=== PATIENT | male | born 1950 | race Caucasian/White ===

== ENCOUNTER 2022-08-06 09:40 | Emergency (ER) | payer MEDICARE ==
[~2022-08-06] VITALS: Ht 170.2 cm; Wt 54.5 kg
[2022-08-06 09:48] VITALS: BP 164/81
[2022-08-06 10:00] VITALS: BP 151/82
[2022-08-06 10:30] VITALS: BP 154/80
[2022-08-06 11:01] VITALS: BP 145/75
== END 2022-08-06 11:06 | disposition home or self-care (01) ==
LOC: ED 09:40
DX: S40.011A Contusion of right shoulder, initial encounter (principal); W06.XXXA Fall from bed, initial encounter; Y92.003 Bedroom of unspecified non-institutional (private) residence as the place of occurrence of the external cause

== ENCOUNTER 2023-02-27 12:03 | Inpatient (IN) | payer MEDICARE ==
[2023-02-27] VITALS (24 sets, daily range): BP systolic 103–144; BP diastolic 62–81
[~2023-02-27] VITALS: Ht 170.2 cm; Wt 50.0 kg
[2023-02-27 12:45] LABS: HEMATOCRIT 41.8 % (39.0-50.0); HEMOGLOBIN 14.1 g/dl (14.0-18.0); IMMATURE GRANULOCYTES 3.8 % (0.0-5.0); MEAN CELL VOLUME 93.3 fL CALC (80.0-100.0); MEAN CORPUSCULAR HGB 31.5 pG CALC (26.0-32.0); MEAN CORPUSCULAR HGB CONC 33.7 g/dL CAL (32.0-36.0); PLATELET COUNT 514 thou/uL (130-400); RED BLOOD COUNT 4.48 mill/uL (4.70-6.10); RED CELL DISTRI WIDTH 13.6 % (11.5-15.5)
[2023-02-27 12:48] LABS: MANUAL DIFFERENTIAL YES
[2023-02-27 12:58] LABS: ALBUMIN 3.1 g/dL (3.2-5.0); ALKALINE PHOSPHATASE 166 u/l (38-126); ANION GAP 16 (6-22 (CALC)); BILIRUBIN, TOTAL 0.9 mg/dL (0.2-1.3); BUN 63 mg/dL (8-23); BUN/CREATININE RATIO 40 (12-20 (CALC)); CARBON DIOXIDE 23 mmol/l (22-30); CHLORIDE 95 mmol/l (95-108); CREATININE 1.6 mg/dL (0.7-1.3); GFR FOR AFR.AMER. 51 ML/MIN (>=60 (CALC)); GFR OTHER RACES 42 ML/MIN (>=60 (CALC)); POTASSIUM 4.1 mmol/l (3.5-5.1); SGOT/AST 50 u/l (19-48); SODIUM 130 mmol/l (137-146); TOTAL PROTEIN 7.1 g/dL (6.3-8.2)
[2023-02-27 13:08] LABS: BAND 0 % (0-8); PLATELET ESTIMATE SLIGHT INCREASE
[2023-02-27] MEDS ORDERED: TRELEGY ELLIPTA1 AER (16:00)
[2023-02-27 16:01] LABS: URINE BILIRUBIN - DIPSTICK NEGATIVE (NEGATIVE); URINE BLOOD DIPSTICK TRACE-INTACT (NEGATIVE); URINE COLOR YELLOW; URINE GLUCOSE - DIPSTICK NEGATIVE (NEGATIVE); URINE KETONE NEGATIVE (NEGATIVE); URINE LEUK ESTERASE NEGATIVE (NEGATIVE); URINE PH 5.5 (4.5-8.0); URINE PROTEIN - DIPSTICK TRACE mg/dL (NEG-TRACE); URINE UROBILINOGEN - DIPSTICK 0.2 E.U./dL (0.2)
[2023-02-27 16:03] LABS: URINE NITRITE - DIPSTICK NEGATIVE (Negative)
[2023-02-28] VITALS (26 sets, daily range): BP systolic 119–157; BP diastolic 62–86
[2023-02-28 08:08] LABS: ALKALINE PHOSPHATASE 172 u/l (38-126); CREATININE 0.9 mg/dL (0.7-1.3); GFR FOR AFR.AMER. > 60 ML/MIN (>=60 (CALC)); GFR OTHER RACES > 60 ML/MIN (>=60 (CALC)); MAGNESIUM 2.3 mg/dL (1.6-2.3); POTASSIUM 4.3 mmol/l (3.5-5.1); SGOT/AST 58 u/l (19-48)
[2023-02-28 08:24] LABS: HEMATOCRIT 39.7 % (39.0-50.0); HEMOGLOBIN 13.3 g/dl (14.0-18.0); IMMATURE GRANULOCYTES 5.5 % (0.0-5.0); MANUAL DIFFERENTIAL YES; MEAN CELL VOLUME 93.6 fL CALC (80.0-100.0); MEAN CORPUSCULAR HGB 31.4 pG CALC (26.0-32.0); MEAN CORPUSCULAR HGB CONC 33.5 g/dL CAL (32.0-36.0); PLATELET COUNT 377 thou/uL (130-400); RED BLOOD COUNT 4.24 mill/uL (4.70-6.10)
[2023-02-28 08:28] LABS: ALBUMIN 2.2 g/dL (3.2-5.0); ANION GAP 16 (6-22 (CALC)); BUN 36 mg/dL (8-23); BUN/CREATININE RATIO 40 (12-20 (CALC)); C-REACTIVE PROTEIN 26.7 mg/dL (0-0.9); CARBON DIOXIDE 17 mmol/l (22-30); CHLORIDE 109 mmol/l (95-108); SODIUM 138 mmol/l (137-146)
[2023-02-28 09:54] LABS: BAND 27 % (0-8)
[2023-03-01] VITALS (24 sets, daily range): BP systolic 145–194; BP diastolic 71–97
[2023-03-01 04:13] LABS: HEMATOCRIT 39.7 % (39.0-50.0); HEMOGLOBIN 13.1 g/dl (14.0-18.0); MEAN CELL VOLUME 95.7 fL CALC (80.0-100.0); MEAN CORPUSCULAR HGB 31.6 pG CALC (26.0-32.0); RED BLOOD COUNT 4.15 mill/uL (4.70-6.10); RED CELL DISTRI WIDTH 14.4 % (11.5-15.5)
[2023-03-01 04:27] LABS: ALBUMIN 2.5 g/dL (3.2-5.0); ALKALINE PHOSPHATASE 249 u/l (38-126); BILIRUBIN, TOTAL 0.7 mg/dL (0.2-1.3); BUN 27 mg/dL (8-23); BUN/CREATININE RATIO 39 (12-20 (CALC)); CHLORIDE 111 mmol/l (95-108); CREATININE 0.7 mg/dL (0.7-1.3); GFR FOR AFR.AMER. > 60 ML/MIN (>=60 (CALC)); GFR OTHER RACES > 60 ML/MIN (>=60 (CALC)); MAGNESIUM 2.3 mg/dL (1.6-2.3); POTASSIUM 3.8 mmol/l (3.5-5.1); SGOT/AST 73 u/l (19-48); SODIUM 139 mmol/l (137-146)
[2023-03-01 04:28] LABS: ANION GAP 11 (6-22 (CALC)); CARBON DIOXIDE 21 mmol/l (22-30)
[2023-03-02] VITALS (30 sets, daily range): BP systolic 146–191; BP diastolic 70–151
[2023-03-02 05:18] LABS: HEMATOCRIT 36.5 % (39.0-50.0); HEMOGLOBIN 12.4 g/dl (14.0-18.0); MEAN CELL VOLUME 91.7 fL CALC (80.0-100.0); MEAN CORPUSCULAR HGB 31.2 pG CALC (26.0-32.0); RED BLOOD COUNT 3.98 mill/uL (4.70-6.10); RED CELL DISTRI WIDTH 14.2 % (11.5-15.5)
[2023-03-02 05:31] LABS: ALBUMIN 2.6 g/dL (3.2-5.0); ALKALINE PHOSPHATASE 225 u/l (38-126); ANION GAP 10 (6-22 (CALC)); BILIRUBIN, TOTAL 0.7 mg/dL (0.2-1.3); BUN 20 mg/dL (8-23); BUN/CREATININE RATIO 33 (12-20 (CALC)); CARBON DIOXIDE 22 mmol/l (22-30); CHLORIDE 109 mmol/l (95-108); CREATININE 0.6 mg/dL (0.7-1.3); GFR FOR AFR.AMER. > 60 ML/MIN (>=60 (CALC)); GFR OTHER RACES > 60 ML/MIN (>=60 (CALC)); MAGNESIUM 1.9 mg/dL (1.6-2.3); POTASSIUM 3.6 mmol/l (3.5-5.1); SGOT/AST 51 u/l (19-48); SODIUM 138 mmol/l (137-146); TOTAL PROTEIN 6.1 g/dL (6.3-8.2)
[2023-03-03] VITALS (44 sets, daily range): BP systolic 115–156; BP diastolic 57–92
[2023-03-03 06:08] LABS: HEMATOCRIT 37.9 % (39.0-50.0); HEMOGLOBIN 12.4 g/dl (14.0-18.0); MEAN CELL VOLUME 94.8 fL CALC (80.0-100.0); MEAN CORPUSCULAR HGB CONC 32.7 g/dL CAL (32.0-36.0); RED CELL DISTRI WIDTH 14.4 % (11.5-15.5)
[2023-03-03 06:28] LABS: ALBUMIN 2.5 g/dL (3.2-5.0); ALKALINE PHOSPHATASE 184 u/l (38-126); ANION GAP 11 (6-22 (CALC)); BILIRUBIN, TOTAL 0.9 mg/dL (0.2-1.3); BUN 22 mg/dL (8-23); BUN/CREATININE RATIO 43 (12-20 (CALC)); C-REACTIVE PROTEIN 6.1 mg/dL (0-0.9); CARBON DIOXIDE 24 mmol/l (22-30); CHLORIDE 101 mmol/l (95-108); CREATININE 0.5 mg/dL (0.7-1.3); GFR FOR AFR.AMER. > 60 ML/MIN (>=60 (CALC)); GFR OTHER RACES > 60 ML/MIN (>=60 (CALC)); MAGNESIUM 1.7 mg/dL (1.6-2.3); POTASSIUM 3.5 mmol/l (3.5-5.1); SGOT/AST 46 u/l (19-48); SODIUM 133 mmol/l (137-146); TOTAL PROTEIN 5.6 g/dL (6.3-8.2)
[2023-03-04] VITALS (24 sets, daily range): BP systolic 88–153; BP diastolic 51–107
[2023-03-04 05:11] LABS: HEMATOCRIT 41.3 % (39.0-50.0); HEMOGLOBIN 13.7 g/dl (14.0-18.0); MEAN CELL VOLUME 93.4 fL CALC (80.0-100.0); MEAN CORPUSCULAR HGB CONC 33.2 g/dL CAL (32.0-36.0); RED BLOOD COUNT 4.42 mill/uL (4.70-6.10); RED CELL DISTRI WIDTH 14.1 % (11.5-15.5)
[2023-03-04 05:27] LABS: ALBUMIN 2.6 g/dL (3.2-5.0); ALKALINE PHOSPHATASE 175 u/l (38-126); BUN 23 mg/dL (8-23); BUN/CREATININE RATIO 38 (12-20 (CALC)); CHLORIDE 98 mmol/l (95-108); CREATININE 0.6 mg/dL (0.7-1.3); GFR FOR AFR.AMER. > 60 ML/MIN (>=60 (CALC)); GFR OTHER RACES > 60 ML/MIN (>=60 (CALC)); MAGNESIUM 1.9 mg/dL (1.6-2.3); POTASSIUM 3.1 mmol/l (3.5-5.1); SGOT/AST 46 u/l (19-48); SODIUM 133 mmol/l (137-146); TOTAL PROTEIN 5.9 g/dL (6.3-8.2)
[2023-03-04 05:28] LABS: ANION GAP 7 (6-22 (CALC)); CARBON DIOXIDE 31 mmol/l (22-30)
[2023-03-05] VITALS (11 sets, daily range): BP systolic 111–156; BP diastolic 51–79
[2023-03-05 05:06] LABS: HEMOGLOBIN 13.1 g/dl (14.0-18.0); LYMPH% 2.5 % (15-41); MEAN CELL VOLUME 92.8 fL CALC (80.0-100.0); MEAN CORPUSCULAR HGB 30.4 pG CALC (26.0-32.0); MEAN CORPUSCULAR HGB CONC 32.8 g/dL CAL (32.0-36.0); MONO% 3.2 % (2-13); NEUT# 24.87 thou/uL (1.82-7.42); NEUT% 92.3 % (42-76); RED BLOOD COUNT 4.31 mill/uL (4.70-6.10); RED CELL DISTRI WIDTH 14.2 % (11.5-15.5)
[2023-03-05 05:13] LABS: ANION GAP 10 (6-22 (CALC)); BUN 27 mg/dL (8-23); BUN/CREATININE RATIO 47 (12-20 (CALC)); CARBON DIOXIDE 27 mmol/l (22-30); CHLORIDE 102 mmol/l (95-108); CREATININE 0.6 mg/dL (0.7-1.3); GFR FOR AFR.AMER. > 60 ML/MIN (>=60 (CALC)); GFR OTHER RACES > 60 ML/MIN (>=60 (CALC)); MAGNESIUM 2.1 mg/dL (1.6-2.3); SODIUM 135 mmol/l (137-146)
[2023-03-05 05:16] LABS: POTASSIUM 3.8 mmol/l (3.5-5.1)
[2023-03-06] VITALS (8 sets, daily range): BP systolic 95–130; BP diastolic 43–64
[2023-03-06 05:02] LABS: HEMATOCRIT 37.4 % (39.0-50.0); HEMOGLOBIN 12.2 g/dl (14.0-18.0); IMMATURE GRANULOCYTES 0.9 % (0.0-5.0); LYMPH% 3.4 % (15-41); MEAN CORPUSCULAR HGB 30.7 pG CALC (26.0-32.0); MEAN CORPUSCULAR HGB CONC 32.6 g/dL CAL (32.0-36.0); MONO% 4.2 % (2-13); NEUT# 19.32 thou/uL (1.82-7.42); NEUT% 91.5 % (42-76); RED BLOOD COUNT 3.98 mill/uL (4.70-6.10); RED CELL DISTRI WIDTH 14.4 % (11.5-15.5)
[2023-03-06 05:13] LABS: ANION GAP 7 (6-22 (CALC)); BUN 32 mg/dL (8-23); BUN/CREATININE RATIO 58 (12-20 (CALC)); CARBON DIOXIDE 25 mmol/l (22-30); CHLORIDE 103 mmol/l (95-108); CREATININE 0.5 mg/dL (0.7-1.3); GFR FOR AFR.AMER. > 60 ML/MIN (>=60 (CALC)); GFR OTHER RACES > 60 ML/MIN (>=60 (CALC)); MAGNESIUM 2.1 mg/dL (1.6-2.3); POTASSIUM 3.6 mmol/l (3.5-5.1); SODIUM 132 mmol/l (137-146)
[2023-03-06] MEDS ORDERED: DECADRON4 MG PO (09:25)
[2023-03-06] MEDS ORDERED: OMNICEF300 M1 PO (09:28)
[2023-03-06] MEDS ORDERED: LEVOFLOXACIN500MG PO (09:48)
== END 2023-03-06 12:00 | disposition home or self-care (01) | DRG 871 ==
LOC: ED 12:03 → ED-I 17:00 → ED 17:28 → ICU 17:29 → MS2 17:29 → ICU 18:45 → MS2 03-04 17:09 → ICU 03-05 18:15
PROVIDERS: Family Medicine; ADMIT Internal Medicine; ATTEND Internal Medicine
PROC: 5A0935A Assistance with Respiratory Ventilation, Less than 24 Consecutive Hours, High Flow/Velocity Cannula (ICD-10-PCS; principal; 2023-02-28)
PROC: XW033E5 Introduction of Remdesivir Anti-infective into Peripheral Vein, Percutaneous Approach, New Technology Group 5 (ICD-10-PCS; 2023-03-01)
DX: A41.89 Other specified sepsis (principal); G93.41 Metabolic encephalopathy; U07.1 COVID-19; J12.82 Pneumonia due to coronavirus disease 2019; J96.01 Acute respiratory failure with hypoxia; J44.0 Chronic obstructive pulmonary disease with (acute) lower respiratory infection; N17.9 Acute kidney failure, unspecified; B37.0 Candidal stomatitis; E87.20 Acidosis, unspecified; R65.20 Severe sepsis without septic shock; F03.90 Unspecified dementia, unspecified severity, without behavioral disturbance, psychotic disturbance, mood disturbance, and anxiety; G47.00 Insomnia, unspecified; B96.5 Pseudomonas (aeruginosa) (mallei) (pseudomallei) as the cause of diseases classified elsewhere; Z87.891 Personal history of nicotine dependence; Z99.81 Dependence on supplemental oxygen
CPT/HCPCS: J0692; Q3014; Q9967

== ENCOUNTER 2023-04-10 19:10 | Observation (INO) | payer MEDICARE ==
[2023-04-10] VITALS (16 sets, daily range): BP systolic 103–142; BP diastolic 57–82
[~2023-04-10] VITALS: Ht 170.2 cm; Wt 48.1 kg
[~2023-04-10 19:10] MED LIST: DECADRON4 MG PO; LEVOFLOXACIN500MG PO; OMNICEF300 M1 PO; TRELEGY ELLIPTA1 AER; VENTOLIN HFA108 MCG INHW/SPAC
[2023-04-10 19:50] LABS: EOS% 0.1 % (0-8); HEMATOCRIT 30.3 % (39.0-50.0); HEMOGLOBIN 9.6 g/dl (14.0-18.0); IMMATURE GRANULOCYTES 0.6 % (0.0-5.0); LYMPH% 13.3 % (15-41); MEAN CELL VOLUME 92.1 fL CALC (80.0-100.0); MEAN CORPUSCULAR HGB 29.2 pG CALC (26.0-32.0); MEAN CORPUSCULAR HGB CONC 31.7 g/dL CAL (32.0-36.0); MONO% 5.3 % (2-13); NEUT# 13.95 thou/uL (1.82-7.42); NEUT% 80.7 % (42-76); RED BLOOD COUNT 3.29 mill/uL (4.70-6.10); RED CELL DISTRI WIDTH 15.9 % (11.5-15.5)
[2023-04-10 20:04] LABS: PROTHROMBIN TIME 10.2 SECONDS (9.0-12.5)
[2023-04-10 20:12] LABS: D-DIMER 5.22 mg/L (0.19-0.60)
[2023-04-10 21:01] LABS: ALKALINE PHOSPHATASE 173 u/l (38-126); ANION GAP 9 (6-22 (CALC)); BUN 13 mg/dL (8-23); BUN/CREATININE RATIO 20 (12-20 (CALC)); CARBON DIOXIDE 25 mmol/l (22-30); CHLORIDE 101 mmol/l (95-108); CREATININE 0.6 mg/dL (0.7-1.3); GFR FOR AFR.AMER. > 60 ML/MIN (>=60 (CALC)); GFR OTHER RACES > 60 ML/MIN (>=60 (CALC)); POTASSIUM 3.7 mmol/l (3.5-5.1); SODIUM 132 mmol/l (137-146); TOTAL PROTEIN 6.6 g/dL (6.3-8.2)
[2023-04-10 21:03] LABS: ALBUMIN 2.8 g/dL (3.2-5.0); BILIRUBIN, TOTAL 0.5 mg/dL (0.2-1.3); SGOT/AST 56 u/l (19-48)
[2023-04-11] VITALS (67 sets, daily range): BP systolic 73–129; BP diastolic 51–77
[2023-04-11] MEDS ORDERED: BENZONATATE150 MG (04:08)
[2023-04-11] MEDS ORDERED: TRELEGY ELLIPTA1 AER (04:10)
[2023-04-11] MEDS ORDERED: VENTOLIN HFA IN (04:12)
[2023-04-11 13:39] LABS: CHOLESTEROL HDL RATIO 3.9 (<4.4 (CALC))
[2023-04-11 18:22] LABS: URINE BILIRUBIN - DIPSTICK NEGATIVE (NEGATIVE); URINE BLOOD DIPSTICK NEGATIVE (NEGATIVE); URINE COLOR YELLOW; URINE GLUCOSE - DIPSTICK NEGATIVE (NEGATIVE); URINE KETONE NEGATIVE (NEGATIVE); URINE LEUK ESTERASE NEGATIVE (NEGATIVE); URINE PROTEIN - DIPSTICK 30 mg/dL (NEG-TRACE); URINE SPECIFIC GRAVITY 1.025; URINE UROBILINOGEN - DIPSTICK 0.2 E.U./dL (0.2)
[2023-04-11 18:25] LABS: URINE NITRITE - DIPSTICK NEGATIVE (Negative)
[2023-04-11 18:32] LABS: URINE RBC 0-2 RBC/hpf (0-5); URINE WBC 0-2 WBC/hpf (0-5)
[2023-04-12] VITALS (24 sets, daily range): BP systolic 109–142; BP diastolic 52–82
[2023-04-12 05:42] LABS: HEMATOCRIT 25.1 % (39.0-50.0); HEMOGLOBIN 7.9 g/dl (14.0-18.0); MEAN CELL VOLUME 92.3 fL CALC (80.0-100.0); MEAN CORPUSCULAR HGB CONC 31.5 g/dL CAL (32.0-36.0); RED BLOOD COUNT 2.72 mill/uL (4.70-6.10); RED CELL DISTRI WIDTH 15.9 % (11.5-15.5)
[2023-04-12 05:59] LABS: ALBUMIN 2.3 g/dL (3.2-5.0); ALKALINE PHOSPHATASE 133 u/l (38-126); ANION GAP 7 (6-22 (CALC)); BUN 18 mg/dL (8-23); BUN/CREATININE RATIO 30 (12-20 (CALC)); CARBON DIOXIDE 28 mmol/l (22-30); CHLORIDE 102 mmol/l (95-108); CREATININE 0.6 mg/dL (0.7-1.3); GFR FOR AFR.AMER. > 60 ML/MIN (>=60 (CALC)); GFR OTHER RACES > 60 ML/MIN (>=60 (CALC)); MAGNESIUM 1.9 mg/dL (1.6-2.3); POTASSIUM 3.5 mmol/l (3.5-5.1); SGOT/AST 26 u/l (19-48); SODIUM 133 mmol/l (137-146)
[2023-04-12 06:06] LABS: BILIRUBIN, TOTAL 0.2 mg/dL (0.2-1.3); TOTAL PROTEIN 5.2 g/dL (6.3-8.2)
[2023-04-13] VITALS (11 sets, daily range): BP systolic 116–158; BP diastolic 51–77
[2023-04-13 06:26] LABS: MEAN CELL VOLUME 92.7 fL CALC (80.0-100.0); MEAN CORPUSCULAR HGB 28.8 pG CALC (26.0-32.0); RED BLOOD COUNT 3.13 mill/uL (4.70-6.10); RED CELL DISTRI WIDTH 16.5 % (11.5-15.5)
[2023-04-13 06:41] LABS: ALBUMIN 2.7 g/dL (3.2-5.0); ALKALINE PHOSPHATASE 133 u/l (38-126); BUN 16 mg/dL (8-23); BUN/CREATININE RATIO 29 (12-20 (CALC)); CARBON DIOXIDE 28 mmol/l (22-30); CHLORIDE 102 mmol/l (95-108); CREATININE 0.6 mg/dL (0.7-1.3); GFR FOR AFR.AMER. > 60 ML/MIN (>=60 (CALC)); GFR OTHER RACES > 60 ML/MIN (>=60 (CALC)); SGOT/AST 38 u/l (19-48); SODIUM 135 mmol/l (137-146)
[2023-04-13 06:43] LABS: ANION GAP 9 (6-22 (CALC)); BILIRUBIN, TOTAL 0.5 mg/dL (0.2-1.3); POTASSIUM 4.4 mmol/l (3.5-5.1)
[2023-04-13] MEDS ORDERED: PANTOPRAZOLE SO40 M1 PO (15:52)
[2023-04-13] MEDS ORDERED: OMNICEF300 MG PO (15:52)
[2023-04-13] MEDS ORDERED: PREDNISONE10 MG PO (15:56)
== END 2023-04-13 17:15 ==
LOC: ED 19:10 → ICU 23:21 → ED-I 23:21 → ICU 04-11 02:22
PROVIDERS: Emergency Medicine; ADMIT Internal Medicine; ATTEND Internal Medicine
PROC: 5A09357 Assistance with Respiratory Ventilation, Less than 24 Consecutive Hours, Continuous Positive Airway Pressure (ICD-10-PCS; principal; 2023-04-10)
DX: J43.9 Emphysema, unspecified (principal); J96.01 Acute respiratory failure with hypoxia; D62 Acute posthemorrhagic anemia; R19.5 Other fecal abnormalities; I10 Essential (primary) hypertension; R91.8 Other nonspecific abnormal finding of lung field; Z87.891 Personal history of nicotine dependence; Z86.16 Personal history of COVID-19
CPT/HCPCS: J1650; J2060; Q9967

== ENCOUNTER 2024-09-27 13:52 | Observation (INO) | payer MEDICARE ==
[2024-09-27] VITALS (16 sets, daily range): BP systolic 72–155; BP diastolic 45–108
[~2024-09-27] VITALS: Ht 170.2 cm; Wt 51.8 kg
[~2024-09-27 13:52] MED LIST changes: +BENZONATATE150 MG; +OMNICEF300 MG PO; +PANTOPRAZOLE SO40 M1 PO; +PREDNISONE10 MG PO; +VENTOLIN HFA IN
--- NOTE | 2024-09-27 13:52 | NUR ---
PT TO ER ROOM 7 VIA EMS.
[2024-09-27] MEDS ORDERED: SODIUM CHLORIDE 0.9% 1,000 ML IV ONE ×2 (14:15)
[2024-09-27 14:19] LABS: BASO% 0.2 % (0-3); IMMATURE GRANULOCYTES 0.4 % (0.0-5.0); LYMPH% 12.4 % (15-41); MEAN CORPUSCULAR HGB CONC 31.6 g/dL CAL (32.0-36.0); MONO% 11.8 % (2-13); NEUT# 9.65 thou/uL (1.82-7.42); NEUT% 75.2 % (42-76); RED BLOOD COUNT 4.47 mill/uL (4.70-6.10); RED CELL DISTRI WIDTH 14.1 % (11.5-15.5)
[2024-09-27 14:27] LABS: HEMATOCRIT 39.5 % (39.0-50.0); HEMOGLOBIN 12.5 g/dl (14.0-18.0)
[2024-09-27 14:28] LABS: MEAN CELL VOLUME 88.4 fL CALC (80.0-100.0)
[2024-09-27 14:32] LABS: CREATININE 1.1 mg/dL (0.7-1.3); POTASSIUM 4.2 mmol/l (3.5-5.1)
[2024-09-27 14:33] LABS: ALBUMIN 3.9 g/dL (3.2-5.0); BILIRUBIN, TOTAL 0.9 mg/dL (0.2-1.3)
--- NOTE | 2024-09-27 15:23 | NUR ---
Patient unable to void for urine specimen. Provider made aware.
[2024-09-27] MEDS ORDERED: AZITHROMYCIN 500 MG in SODIUM CHLORIDE 0.9% 500 ML IV ONE (16:50)
--- NOTE | 2024-09-27 17:37 | NUR ---
Patient confused stating that he is at home in his bedroom.
[2024-09-27] MEDS ORDERED: MAGNESIUM HYDROXIDE 30 ML UDC PO PRN (17:45)
[2024-09-27] MEDS ORDERED: SODIUM CHLORIDE 0.9% 1,000 ML IV PRN (17:45)
[2024-09-27] MEDS ORDERED: ACETAMINOPHEN 325 MG/TAB PO PRN (17:45)
[2024-09-27 17:59] LABS: URINE BLOOD DIPSTICK Moderate (NEGATIVE); URINE GLUCOSE - DIPSTICK Negative (NEGATIVE); URINE KETONE 15 mg/dL (NEGATIVE); URINE LEUK ESTERASE Negative (NEGATIVE); URINE NITRITE - DIPSTICK Negative (Negative); URINE PH 5.5 (4.5-8.0); URINE PROTEIN - DIPSTICK >=300 mg/dL (NEG-TRACE); URINE SPECIFIC GRAVITY 1.025; URINE UROBILINOGEN - DIPSTICK 0.2 E.U./dL (0.2)
[2024-09-27 18:01] LABS: URINE COLOR Dark yellow
[2024-09-27 18:12] LABS: URINE RBC 0-2 RBC/hpf (0-5); URINE SQUAMOUS EPITHELIAL CELL FEW EPI/hpf (0-FEW); URINE WBC 0-2 WBC/hpf (0-5)
[2024-09-27 18:13] LABS: URINE MUCUS FEW hpf (NONE-FEW)
[2024-09-27 18:14] LABS: URINE COARSE GRANULAR CAST MODERATE lpf
[2024-09-27] MEDS ORDERED: ALBUTEROL SULFATE 8 GM INH IN SCH (19:00)
--- NOTE | 2024-09-27 19:11 | NUR ---
Report called to [facility], 2nd floor.
--- NOTE | 2024-09-27 19:12 | NUR ---
Patient's daughter, Bhakti Joe, called to update on patient's condition.
--- NOTE | 2024-09-27 19:40 | NUR ---
PT TRANSPORTED TO [facility] BY [employer]. AT THIS TIME.
[2024-09-27] MEDS ORDERED: ENOXAPARIN SODIUM 40 MG/0.4 ML SYR SC SCH (21:00)
--- NOTE | 2024-09-27 21:50 | NUR ---
PATIENT CAME IN FROM ER TO MS2 AT 1948. PATIENT OBSERVED TO BE A&O X1. BED SIDE ASSESSMENT COMPLETE. RESP EVEN AND UNLABORED, NO VISUAL SIGNS OF DISTRESS. BOWEL SOUNDS PRESENT. PERIPHERAL PULSES STRONG AND EQUAL. SITTER AT BED SIDE. BED AT LOWEST POSITION. CALL LIGHT WITH IN REACH.
[2024-09-28] VITALS (8 sets, daily range): BP systolic 110–137; BP diastolic 43–65
--- NOTE | 2024-09-28 00:11 | NUR ---
PATIENT IN ROOM RESTING ON LEFT SIDE. SITTER AT BEDSIDE. EQUAL UNLABORED RESP NO VISUAL SIGNS OF DISTRESS. SAFTY PRECAUTIONS IN PLACE. BED AT LOWEST POSITION. CALL LIGHT WITH IN REACH.
--- NOTE | 2024-09-28 04:18 | NUR ---
PATIENT OBSERVED TO BE RESTING IN BED WITH EYES CLOSED. EQUAL UNLABORED RESP NO VISUAL SIGNS OF DISTRESS. BED AT LOWEST POSITION. CALL LIGHT WITH IN REACH.
--- NOTE | 2024-09-28 06:51 | NUR ---
PATIENT LAYING IN BED WITH EYES CLOSED. SITTER AT BEDSIDE. NO SIGNS OR SYMPTOMS OF PAIN OR DISTRESS NOTED AT THIS TIME.
[2024-09-28] MEDS ORDERED: PANTOPRAZOLE SODIUM Sesquihydr 40 MG/TAB PO SCH (09:00)
[2024-09-28] MEDS ORDERED: GUAIFENESIN 200 MG/10 ML UDC PO PRN (10:40)
[2024-09-28] MEDS ORDERED: METOPROLOL SUCCINATE 25 MG/TAB-TOPROL XL PO SCH (11:30)
--- NOTE | 2024-09-28 11:53 | NUR ---
PATIENT LAYING IN BED. SITTER AT BEDSIDE. PATIENT DENIES ANY NEED AT THIS TIME.
[2024-09-28] MEDS ORDERED: AZITHROMYCIN 500 MG in SODIUM CHLORIDE 0.9% 500 ML IV SCH (15:00)
--- NOTE | 2024-09-28 15:51 | NUR ---
PATIENT LAYING IN BED. SITTER AT BEDSIDE. PATIENT DENIES ANY NEEDS AT THIS TIME.
--- NOTE | 2024-09-28 17:02 | NUR ---
SPOKE WITH PATIENT DAUGHTER CHRIS HONG ([phone]). DAUGHTER STATES TO CALLED HER FIRST WITH ANY QUESTIONS OR UPDATES.
--- NOTE | 2024-09-28 20:00 | NUR ---
PATIENT SITTING UP IN RECLINER AT THIS TIME-AWAKE AND ALERT TO SELF. PLEASANT. SITTER AT BEDSIDE FOR PATIENT SAFETY. TELE MONITOR IN PLACE AND READING SR-90'S AT THIS TIME. PATIENT WITH PERSISTANT NON-PRODUCTIVE COUGH. IVF PATIENT AND INFUSING ORDERED-NS 100CC/HR. CALL LIGHT IN REACH. WILL CONT TO MONITOR.
--- NOTE | 2024-09-28 21:00 | NUR ---
PT SITTING UP ON THE RECLINER WATCHING TV AT THIS TIME. ALERT AND ORIENTED TO HIMSELG. RESPS ARE EVEN AND UNLABORED. NO SIGNS OF DISTRESS NOTED. WHEEZES HEARD ON AUSCULTATION. COUGH NOTED-NONPRODUCTIVE. TELE ON PLACE SHOWING SR-95 AT THIS TIME. IVF NS INSUFING AT THIS TIME. DENIES ANY NEEDS AT HSI TIME. CALL LIGHT IN REACH AND SAFETY PRECAUTIONS ON PLACE.
--- NOTE | 2024-09-28 22:30 | NUR ---
PT PULLED OUT HIS IV AT THIS TIME. NEW IV STARTED ON LEFT FOREARM-20- WITH GOOD BLOOD RETURN. IVF NS INFUSING AT 100 MLS/HR INFUSING AT THIS TIME. CALL LIGHT IN REACH AND SAFETY PRCAUTIONS ON PLACE.
[2024-09-29] VITALS (8 sets, daily range): BP systolic 119–164; BP diastolic 57–77
--- NOTE | 2024-09-29 | NUR ---
PT RESTING ON BED WITH EYES CLOSED. RESPS ARE EVEN AND UNLABORED. NO DISTRESS NOTED. IVF NS INFUSING VIA LEFT FOREARM AT THIS TIME. TELE ON PLACE. SITTER SITTING ON THE SIDE. CALL LIGHT IN REACH AND SAFETY PRECAUTIONS ON PLACE
--- NOTE | 2024-09-29 04:00 | NUR ---
PT SITTING UP ON THE RECLINER AT THIS TIME WATCHING TV. BREATHING IS EVEN AND UNLABORED. TELE MONITOR REMAISN ON PLACE SHOWING [id number] AT THIS TIME. IVF NS INFUSING AT 100 CC. CALL LIGHT IN RECAH AND SAFETY PRECAUTIONS ON PLACE.
[2024-09-29 04:56] LABS: MEAN CELL VOLUME 89.7 fL CALC (80.0-100.0); MEAN CORPUSCULAR HGB 28.9 pG CALC (26.0-32.0); MEAN CORPUSCULAR HGB CONC 32.3 g/dL CAL (32.0-36.0); RED BLOOD COUNT 3.49 mill/uL (4.70-6.10); RED CELL DISTRI WIDTH 14.4 % (11.5-15.5)
[2024-09-29 05:00] LABS: HEMATOCRIT 31.3 % (39.0-50.0); HEMOGLOBIN 10.1 g/dl (14.0-18.0)
[2024-09-29 05:11] LABS: ALBUMIN 3.3 g/dL (3.2-5.0); BILIRUBIN, TOTAL 0.7 mg/dL (0.2-1.3); CREATININE 0.8 mg/dL (0.7-1.3); POTASSIUM 3.4 mmol/l (3.5-5.1); TOTAL PROTEIN 6.8 g/dL (6.3-8.2)
--- NOTE | 2024-09-29 07:02 | NUR ---
PATIENT SITTING UP IN CHAIR, WATCHING TV. SITTER AT DOOR. PATIENT A&OX1. NO SIGNS OR SYMPTOMS OF PAIN OR DISTRESS NOTED.
[2024-09-29] MEDS ORDERED: POTASSIUM CHLORIDE 20 MEQ/TAB PO SCH (09:00)
--- NOTE | 2024-09-29 11:45 | NUR ---
PATIENT LAYING IN BED. SITTER AT DOOR. NO SIGNS OR SYMPTOMS OF PAIN OR DISTRESS NOTED.
--- NOTE | 2024-09-29 15:51 | NUR ---
PATIENT SITTING UP IN CHAIR, WATCHING TV. SITTER AT DOOR. NO SIGNS OR SYMPTOMS OF PAIN OR DISTRESS NOTED.
--- NOTE | 2024-09-29 21:00 | NUR ---
PT SITTING UP ON THE RECLINER WATCHING TV AT THIS TIME. ALERT AND ORIENTED TO HIMSELF ONLY. SITTER ON THE SIDE FOR PT SAFETY. RESPS ARE EVEN AND UNLABORED. NO SIGNS OF DISTRESS. PT STILL REMAINS WITH COUGH BUT IT IS NONPRODUCTIVE. WHEEZES/DIMISHED LUNGS SOUNDS ON AUSCULTATION. IVF NS INFUSING VIA 22 G LEFT FOREARM INFUSING AT 50 MLS/HR. SKIN IS DRY, AND WARMTH. CALL LIGHT IN REACH AND SAFETY PRECAUTIONS ON PLACE
[2024-09-30] VITALS (8 sets, daily range): BP systolic 127–157; BP diastolic 50–75
--- NOTE | 2024-09-30 | NUR ---
PT RESTING ON BED. RESPS EVEN AND UNLABORED. NO DISTRESS NOTED, IVF NS INFUSING AT 50 MLS/HR. SITTER ON THE SIDE. CALL LIGHT IN RECAH AND SAFETY PRECAUTIONS ON PLACE
[2024-09-30 04:22] LABS: HEMATOCRIT 30.2 % (39.0-50.0); HEMOGLOBIN 9.8 g/dl (14.0-18.0); MEAN CELL VOLUME 89.1 fL CALC (80.0-100.0); MEAN CORPUSCULAR HGB 28.9 pG CALC (26.0-32.0); MEAN CORPUSCULAR HGB CONC 32.5 g/dL CAL (32.0-36.0); RED BLOOD COUNT 3.39 mill/uL (4.70-6.10); RED CELL DISTRI WIDTH 14.3 % (11.5-15.5)
--- NOTE | 2024-09-30 04:24 | NUR ---
PT RESTING ON BED IN HIS LEFT SIDE. RESPS ARE EVEN AND UNLABORED. PT REMAINS WITH COUGH AT THIS TIME. IVF NS INFUSING AT 50 CC. TELE MONITOR SHOWING SR-93. SITTER ON THE SIDE. BED IN LOWEST POSITION. CALL LIGHT IN REACH AND SAEFTY PRECAUTIONS ON PLACE
[2024-09-30 04:31] LABS: ALBUMIN 2.8 g/dL (3.2-5.0); BILIRUBIN, TOTAL 0.6 mg/dL (0.2-1.3); CREATININE 0.7 mg/dL (0.7-1.3); POTASSIUM 3.2 mmol/l (3.5-5.1); TOTAL PROTEIN 5.9 g/dL (6.3-8.2)
--- NOTE | 2024-09-30 07:28 | NUR ---
SHIFT CHANGE REPORT, PT SLEEPING SOUNDLY IN LEFT SIDED POSITION, BREATHING EVEN AND NON-LABORED,IVF INFUSING, TELE MONITOR IN PLACE, CALL NORTON IN REACH AND BED LOCKED IN LOWEST POSITION. SITTER IN ROOM.
[2024-09-30] MEDS ORDERED: POTASSIUM CHLORIDE 20 MEQ/TAB PO SCH (09:00)
[2024-09-30] MEDS ORDERED: OMNICEF300 MG PO (10:05)
--- NOTE | 2024-09-30 11:57 | NUR ---
ASSISTED TO BR THIS AM AND SAT UP FOR BREAKFAST BUT REFUSED TO EAT AND SAID HE WAS TIRED AND JUST WANTED TO LAY BACK IN BED, ASSISTED TO BED AND CALL LIGHT PLACED IN REACH. SLEEPING AT THIS TIME, NO SIGN DISCOMFORT.
--- NOTE | 2024-09-30 16:19 | NUR ---
RESTING IN BED, NO NEW DEVELOPMENTS, CONDITION STABLE
--- NOTE | 2024-09-30 18:59 | NUR ---
Discharge instructions given. Patient verbalizes understanding of same. Discharged in stable condition via Wheelchair to Home with family. All belongings sent with pt.
== END 2024-09-30 19:00 | disposition home or self-care (01) ==
LOC: ED 13:52 → ED-I 14:12 → ED 17:15 → MS2 17:16
PROVIDERS: Nurse Practitioner; Nurse Practitioner Family; ADMIT Internal Medicine; ATTEND Internal Medicine
DX: J18.9 Pneumonia, unspecified organism (principal); J44.0 Chronic obstructive pulmonary disease with (acute) lower respiratory infection; J43.9 Emphysema, unspecified; I10 Essential (primary) hypertension; F03.90 Unspecified dementia, unspecified severity, without behavioral disturbance, psychotic disturbance, mood disturbance, and anxiety; K52.9 Noninfective gastroenteritis and colitis, unspecified; R00.0 Tachycardia, unspecified; Z87.01 Personal history of pneumonia (recurrent); Z87.891 Personal history of nicotine dependence; Z20.822 Contact with and (suspected) exposure to COVID-19
CPT/HCPCS: J0456; J0696; J1650

== ENCOUNTER 2024-10-03 05:55 | Inpatient (IN) | payer MEDICARE ==
[~2024-10-03] VITALS: Ht 274.3 cm; Wt 50.4 kg
[2024-10-03] VITALS (21 sets, daily range): BP systolic 133–162; BP diastolic 59–114
--- NOTE | 2024-10-03 05:55 | NUR ---
PT ARRIVED VIA EMS TO ROOM 10 FOR TRIAGE AT BEDSIDE.
[2024-10-03] MEDS ORDERED: Levofloxacin 750 mg Premix 150 ML IV STA (06:05)
[2024-10-03] MEDS ORDERED: SODIUM CHLORIDE 0.9% 1,000 ML BAG IV ONE (06:05)
--- NOTE | 2024-10-03 06:20 | NUR ---
PT MEDICATED PER ORDERS, AWAITING LAB FOR BLOOD CULTURES AT THIS TIME PRIOR TO PT ABX, VSS, PT A&OX4 AT THIS TIME AND UPON ARRIVAL. PT HAS RN APPEALS COUGH. AWAITING ALL FURTHER RESULTS/ORDERS.
[2024-10-03 06:26] LABS: BASO% 0.1 % (0-3); EOS% 0.3 % (0-8); HEMATOCRIT 32.5 % (39.0-50.0); HEMOGLOBIN 10.4 g/dl (14.0-18.0); IMMATURE GRANULOCYTES 1.8 % (0.0-5.0); LYMPH% 15.4 % (15-41); MEAN CELL VOLUME 87.6 fL CALC (80.0-100.0); MONO% 11.9 % (2-13); NEUT# 7.72 thou/uL (1.82-7.42); NEUT% 70.5 % (42-76); RED BLOOD COUNT 3.71 mill/uL (4.70-6.10); RED CELL DISTRI WIDTH 14.4 % (11.5-15.5)
[2024-10-03 06:39] LABS: ALBUMIN 3.1 g/dL (3.2-5.0); BILIRUBIN, TOTAL 0.5 mg/dL (0.2-1.3); CREATININE 0.7 mg/dL (0.7-1.3); POTASSIUM 2.8 mmol/l (3.5-5.1); TOTAL PROTEIN 6.9 g/dL (6.3-8.2)
--- NOTE | 2024-10-03 07:00 | NUR ---
ASSUMED CARE OF THE PATIENT FROM [facility]. [facility] CALLED. PRO-ADOLFO [phone]. DR. HAMPTON MADE AWARE. NIGHT NURSE STATED THAT PATIENT IS A&O X4. PATIENT IN NO DSITRESS.
--- NOTE | 2024-10-03 07:10 | NUR ---
PATIENT DISCHARGED HOME STATES UNDERSTANDING OF DISCHARGE SUMMARY AND FOLLOW UP CARE.
[2024-10-03] MEDS ORDERED: POTASSIUM CHLORIDE 20 MEQ/TAB PO ONE (07:25)
[2024-10-03 07:52] LABS: URINE BILIRUBIN - DIPSTICK Negative (NEGATIVE); URINE BLOOD DIPSTICK Trace-lysed (NEGATIVE); URINE GLUCOSE - DIPSTICK Negative (NEGATIVE); URINE KETONE 15 mg/dL (NEGATIVE); URINE LEUK ESTERASE Negative (NEGATIVE); URINE NITRITE - DIPSTICK Negative (Negative); URINE PROTEIN - DIPSTICK 100 mg/dL (NEG-TRACE); URINE SPECIFIC GRAVITY 1.025; URINE UROBILINOGEN - DIPSTICK 0.2 E.U./dL (0.2)
[2024-10-03 07:53] LABS: URINE COLOR Yellow
[2024-10-03 08:00] LABS: URINE MUCUS FEW hpf (NONE-FEW); URINE RBC 0-2 RBC/hpf (0-5); URINE WBC 0-2 WBC/hpf (0-5)
[2024-10-03 08:01] LABS: URINE COARSE GRANULAR CAST RARE lpf; URINE HYALINE CAST FEW lpf (NONE-RARE)
--- NOTE | 2024-10-03 08:03 | NUR ---
PATIENT PROVIDED URINE SAMPLE. PATIENT IN NO DISTRESS. IVF INFUSING AT THIS TIME.
--- NOTE | 2024-10-03 08:30 | NUR ---
PATIENT TAKEN TO RADIOLOGY AT THIS TIME.
--- NOTE | 2024-10-03 08:57 | NUR ---
PATIENT HAS VOIDED 3 TIMES SINCE START OF SHIFT. @1200CC OUT OF CLEAR YELLOEW URINE.
--- NOTE | 2024-10-03 09:02 | NUR ---
PATIENT FELT WARM TO THE TOUCH. RECHECK ON TEMP WAS 98.4 ORALLY
[2024-10-03] MEDS ORDERED: VANCOMYCIN HCL 1 GM in SODIUM CHLORIDE 0.9% 500 ML IV ONE (10:10)
[2024-10-03] MEDS ORDERED: MAGNESIUM HYDROXIDE 30 ML UDC PO PRN (10:35)
[2024-10-03] MEDS ORDERED: SODIUM CHLORIDE 0.9% 1,000 ML IV PRN (10:35)
[2024-10-03] MEDS ORDERED: ACETAMINOPHEN 325 MG/TAB PO PRN (10:35)
--- NOTE | 2024-10-03 10:59 | NUR ---
PATIENT IS ADMITTED UNDER DR. CHRISTIE SERVICE. PATIENT HAD A LARGE BM. PATIENT STATES UNAWARE THAT HE HAD TO HAVE A BM
--- NOTE | 2024-10-03 11:16 | NUR ---
IV VANCOMYCIN INITIATED PER ADMISSION ORDERS. PATIENT IN NO DISTRESS. PATIENT VOIDING WELL. @ 400ML EVERY HOUR
[2024-10-03] MEDS ORDERED: MONTELUKAST SOD10 MG PO (11:46)
[2024-10-03] MEDS ORDERED: CEFDINIR300 MG PO (11:46)
[2024-10-03] MEDS ORDERED: DONEPEZIL10 MG PO (11:47)
[2024-10-03] MEDS ORDERED: ALBUTEROL108 MCG/AC (11:47)
[2024-10-03] MEDS ORDERED: MEMANTINE HYDROC5 MG (11:47)
--- NOTE | 2024-10-03 11:52 | NUR ---
VERBAL REPORT GIVEN TO [facility]. PATIENT TO BE TAKEN TO MED-SURGE IN 15MIN.
--- NOTE | 2024-10-03 12:36 | NUR ---
report received from er nurse. pt admitted for PNA; was recently discharged for same thing. pt is a/o to person and year; answered month wrong and did not know location. pt is calm and cooperative. lung sounds coarse, moreso on right side. pt is on 2lnc. pt has cough; states occasionally productive but not producing phlegm at this time. ras Drake APRN at bedside to see pt. pt given cup for sputum culture and educated on what to do. heart sounds s1s2; pt is on telemetry. bs active. pulses strong all extremeties. skin w/d/i. given call light and educated on fall precautions. bed alarm on.
--- NOTE | 2024-10-03 14:50 | NUR ---
BEDSIDE REPORT FROM [facility]. ASSUMED PT CARE. PT RESTING IN BED AT THIS TIME. NO APPARENT DISTRESS NOTED. PT DENIES ANY PAIN OR DISCOMFORT. CALL LIGHT WITHIN REACH. WILL CONTINUE TO MONITOR.
[2024-10-03] MEDS ORDERED: PIPERACILLIN Sodium-Tazobactam 3.375 GM in SODIUM CHLORIDE 0.9% 100 ML IV SCH (18:00)
--- NOTE | 2024-10-03 20:00 | NUR ---
RECEIVED REPORT FROM NURSE CARTWRIGHT. PATIENT ALERT TO NAME AND BDAY ONLY, EASY TO REDIRECT, PATIENT AMBULATORY. IV ON LAC NS @ 100CC/HR INGFUSING WELL, SKIN TEAR NOTED ON LEFT ARM, AND SCATTERED BRUISING, PLACED BANDAID, ON TELEMETRY. PATIENT SEEN WALKING HALWAY, PULLING HIS IV POLE, PATIENT ASSISTED BAXCK IN BED, BED ALARM IN PLACED.
--- NOTE | 2024-10-03 20:30 | NUR ---
PATIENT ALERT TO NAME AND BDAY ONLY, AMBULATORY, PATIENT PULLED IV, IV CATH INTACT NEW IV REINSERTED LFA G 22PATENT FLSUHES WELL.
[2024-10-03] MEDS ORDERED: GUAIFENESIN 200 MG/10 ML UDC PO PRN (20:40)
[2024-10-03] MEDS ORDERED: ENOXAPARIN SODIUM 40 MG/0.4 ML SYR SC SCH (21:00)
--- NOTE | 2024-10-04 00:05 | NUR ---
DUE ZOSYN CURRENTLY INFUSING, COUGHING NOTED, BREATHING UNLABORED CALL LIGHT WITHIN REACHED, BED ALARM IN PLACED.
--- NOTE | 2024-10-04 05:10 | NUR ---
PATIENT RSETING WITH EYES CLSOED, NEHEMIAS QUEVEDO UNALBORED SITTER IN ROOM, CALL LIGHT WITHIN REACHG=HED.
[2024-10-04 05:16] VITALS: BP 152/77
[2024-10-04 05:26] LABS: BASO% 0.1 % (0-3); EOS% 0.8 % (0-8); HEMATOCRIT 29.5 % (39.0-50.0); HEMOGLOBIN 9.5 g/dl (14.0-18.0); IMMATURE GRANULOCYTES 2.4 % (0.0-5.0); LYMPH% 24.8 % (15-41); MEAN CELL VOLUME 88.9 fL CALC (80.0-100.0); MEAN CORPUSCULAR HGB 28.6 pG CALC (26.0-32.0); MEAN CORPUSCULAR HGB CONC 32.2 g/dL CAL (32.0-36.0); MONO% 11.7 % (2-13); NEUT# 4.81 thou/uL (1.82-7.42); NEUT% 60.2 % (42-76); RED BLOOD COUNT 3.32 mill/uL (4.70-6.10); RED CELL DISTRI WIDTH 14.6 % (11.5-15.5)
[2024-10-04 05:43] LABS: ALBUMIN 2.8 g/dL (3.2-5.0); BILIRUBIN, TOTAL 0.4 mg/dL (0.2-1.3); CREATININE 0.6 mg/dL (0.7-1.3); MAGNESIUM 1.6 mg/dL (1.6-2.3); POTASSIUM 2.9 mmol/l (3.5-5.1); TOTAL PROTEIN 6.2 g/dL (6.3-8.2)
[2024-10-04 06:50] VITALS: BP 158/77
--- NOTE | 2024-10-04 07:50 | NUR ---
PT IS ALERT, ORIENTED TO SELF, YEAR, NOT LOCATION OR SITUATION, LUNGS ARE DIM AT BILATERAL BASES, BOWEL SOUNDS ARE ACTIVE, PEDAL PULSES ARE PALPABLE TO TOUCH, PT DENIES PAIN AT THIS TIME. SITTER AT BEDSIDE.
[2024-10-04] MEDS ORDERED: DONEPEZIL HCL 5 MG/TAB PO SCH (09:00)
[2024-10-04 10:07] VITALS: BP 159/67
[2024-10-04] MEDS ORDERED: POTASSIUM CHLORIDE 20 MEQ/TAB PO SCH (11:30)
--- NOTE | 2024-10-04 13:10 | NUR ---
PT NAPPING AT THIS TIME. RESPIRATIONS ARE EVEN AND UNLABORED WHILE SLEEPING. PT'S DAUGHTER AT BEDSIDE AT THIS TIME. SITTER AT BEDSIDE FOR PT SAFETY.
[2024-10-04 14:36] VITALS: BP 144/64
[2024-10-04 18:40] VITALS: BP 143/63
--- NOTE | 2024-10-04 20:00 | NUR ---
RECEIVED REPORT FROM NURSE MEJIA, PATIENT RESTING IN BED, ALERT TO NAME AND YEAR ONLY, SITTER IN ROOM, IV INFUSING WELL ON LFA NS @ 100CC/HR, HOOKED ON TELEMETRY, PATIENT NOTED COUGHING NON PRODUCTIVE, LUNG SOUNDS DIMINISHED, PATIENT ON ROOM AIR,BREATHING UNLABORED CALL LIGHT WITHIN REACHED.
[2024-10-04 23:54] VITALS: BP 143/75
--- NOTE | 2024-10-05 | NUR ---
PATIENT RESTING IN BED, BREATHING EVN UNALBORED, ONGOING IV ZOSYN INFUSING. CALLLIGHT IN REACHED. SITTER IN ROOM.
--- NOTE | 2024-10-05 04:00 | NUR ---
PATIENT RESTING WITH EYES CLOSED, BREATHING EVEN UNALBORED TELE IN PLACED, SITTER IN ROOM.
[2024-10-05 04:15] VITALS: BP 136/64
[2024-10-05 05:17] LABS: BASO% 0.1 % (0-3); EOS% 0.9 % (0-8); HEMATOCRIT 31.2 % (39.0-50.0); IMMATURE GRANULOCYTES 2.6 % (0.0-5.0); LYMPH% 19.9 % (15-41); MEAN CELL VOLUME 88.1 fL CALC (80.0-100.0); MEAN CORPUSCULAR HGB 28.2 pG CALC (26.0-32.0); MEAN CORPUSCULAR HGB CONC 32.1 g/dL CAL (32.0-36.0); MONO% 8.6 % (2-13); NEUT# 5.43 thou/uL (1.82-7.42); NEUT% 67.9 % (42-76); RED BLOOD COUNT 3.54 mill/uL (4.70-6.10); RED CELL DISTRI WIDTH 14.5 % (11.5-15.5)
[2024-10-05 05:25] LABS: ALBUMIN 2.7 g/dL (3.2-5.0); BILIRUBIN, TOTAL 0.4 mg/dL (0.2-1.3); CREATININE 0.6 mg/dL (0.7-1.3); MAGNESIUM 1.7 mg/dL (1.6-2.3)
--- NOTE | 2024-10-05 07:32 | NUR ---
PT IS ALERT, ORIENTED TO SELF, KNOWES HES IN A "HOSPITAL" DOES NOT KNOW THE CITY, STATE, OR CURRENT YEAR, RESPIRATIONS ARE EVEN AND UNLABORED ON ROOM AIR, LUNGS ARE CLEAR THROUGHOUT, PRODUCTIVE COUGH, BOWEL SOUNDS ARE ACTIVE, PEDAL PULSES ARE PALPABLE TO TOUCH, PT DENIES PAIN AT THIS TIME. SITTER AT BEDSIDE.
[2024-10-05] MEDS ORDERED: CEFEPIME HYDROCHLORIDE 2 GM in SODIUM CHLORIDE 0.9% 100 ML IV SCH (10:30)
--- NOTE | 2024-10-05 12:58 | NUR ---
PT NAPPING IN THE BED, RESPIRATIONS ARE EVEN AND UNLABORED ON ROOM AIR.
--- NOTE | 2024-10-05 16:19 | NUR ---
CALLED DR FALK TO NOTIFY PT'S POTASSIUM IS 3.0. TELEPHONE ORDER TAKEN LOWRY K-DUE/KLOR 40 MEQ PO 1X.
[2024-10-05] MEDS ORDERED: POTASSIUM CHLORIDE 20 MEQ/TAB PO SCH (16:50)
--- NOTE | 2024-10-05 19:20 | NUR ---
PATIENT ALERT AND ORIENTED. ABLE TO MAKE NEEDS KNOWN. ASSESSMENT COMPLETE. ANSWER APPROPRIATELY AT THIS TIME. NO COMPLAINTS OF PAIN. NO DISTRESS NOTED. SITTER AT BEDSIDE FOR SAFETY REASONS. PATIENT DENIES NEEDING ANYTHING AT THIS TIME. BED IN LOW POSITION. CALL NORTON IN REACH.
--- NOTE | 2024-10-06 00:10 | NUR ---
PATIENT REMAINS RESTING IN BED ON HIS LEFT SIDE. DENIES NEEDING ANYTHING AT THIS TIME. PRODUCTIVE COUGH REMAINS. SITTER REMAINS AT BEDSIDE FOR SAFETY. BED IN LOW POSITION. CALL NORTON IN REACH.
[2024-10-06 00:45] VITALS: BP 146/67
[2024-10-06 04:28] VITALS: BP 152/64
[2024-10-06 04:29] LABS: BASO% 0.1 % (0-3); EOS% 0.9 % (0-8); HEMATOCRIT 32.6 % (39.0-50.0); HEMOGLOBIN 10.4 g/dl (14.0-18.0); IMMATURE GRANULOCYTES 2.2 % (0.0-5.0); LYMPH% 14.8 % (15-41); MEAN CELL VOLUME 87.6 fL CALC (80.0-100.0); MEAN CORPUSCULAR HGB CONC 31.9 g/dL CAL (32.0-36.0); NEUT# 7.21 thou/uL (1.82-7.42); RED BLOOD COUNT 3.72 mill/uL (4.70-6.10); RED CELL DISTRI WIDTH 14.7 % (11.5-15.5)
[2024-10-06 04:46] LABS: BILIRUBIN, TOTAL 0.4 mg/dL (0.2-1.3); CREATININE 0.8 mg/dL (0.7-1.3); MAGNESIUM 1.5 mg/dL (1.6-2.3); POTASSIUM 3.2 mmol/l (3.5-5.1); TOTAL PROTEIN 6.6 g/dL (6.3-8.2)
--- NOTE | 2024-10-06 05:03 | NUR ---
PATIENT REMAINS RESTING IN BED. NO SIGNS OF DISTRESS. NO COMPLAINTS VOICED. SITTER REMAINS AT BEDSIDE FOR SAFETY. BED REMAINS IN LOW POSITION. CALL NORTON IN REACH.
[2024-10-06 06:12] VITALS: BP 161/79
--- NOTE | 2024-10-06 07:22 | NUR ---
PT IS ALERT TO SELF, CURRENT YEAR, AND STATE, NOT ORIENTED TO CITY, OR PLACE. RESPIRATIONS ARE EVEN AND UNLABORED ON ROOM AIR, LUNGS ARE CLEAR, BOWEL SOUNDS ARE ACTIVE, PEDAL PULSES ARE PALPABLE TO TOUCH, PT DENIES PAIN AT THIS TIME.
--- NOTE | 2024-10-06 07:25 | NUR ---
PT HAS A PRODUCTIVE COUGH. SITTER AT BEDSIDE.
--- NOTE | 2024-10-06 17:34 | NUR ---
PT SITTING UP AT THE SIDE OF THE BED IN NO ACUTE DISTRESS EATING DINNER.
[2024-10-06 18:55] VITALS: BP 152/63
--- NOTE | 2024-10-06 19:38 | NUR ---
PATIENT OBSERVED RESTING IN BED. ALERT AND ABLE TO MAKE NEEDS KNOWN. ASSESSMENT COMPLETE. COMPLAINS OF SLIGHT SHORTNESS OF BREATH AT TIMES. NO SHORTNESS OF BREATH OBSERVED. NO COUGH OBSERVED AT THIS TIME. NO COMPLAINTS OF PAIN. SITTER REMAINS IN ROOM FOR SAFETY REASONS. BED REMAINS IN LOW POSITION. CALL NORTON IN REACH.
[2024-10-07 00:40] VITALS: BP 148/67
--- NOTE | 2024-10-07 00:55 | NUR ---
PATIENT OBSERTVED PULLING AT TELE CORDS. SHE VOICED SHE WAS LOOKING FOR HER NASAL CANNULA THAT SHE LOST IN THE BED. TELE REAPPLIED TO PATIENT WELL NC. BED REMAINS IN LOW POSITION. CALL NORTON IN REACH. BED ALARM ACTIVE FOR SAFETY.
--- NOTE | 2024-10-07 00:55 | NUR ---
PATIENT REMAINS RESTING IN BED. DENIES NEEDING ANYTHING. NO DISTRESS NOTED. SITTER REMAINS IN ROOM FOR SAFETY. BED IN LOW POSITION. CALL NORTON IN REACH.
--- NOTE | 2024-10-07 04:25 | NUR ---
PATIENT REMAINS RESTING IN BED ON HIS SIDE. NO DISTRESS NOTED. NO COMPLAINTS VOICED. BED REMAINS IN LOW POSITION. CALL NORTON IN REACH.
[2024-10-07 06:12] VITALS: BP 144/66
[2024-10-07 06:37] VITALS: BP 136/55
--- NOTE | 2024-10-07 07:03 | NUR ---
PATIENT LAYING IN BED. SITTER AT BEDSIDE. PATIENT A&OX3 AND ABLE TO MAKE NEEDS KNOWN. PATIENT DENIES ANY NEEDS AT THIS TIME.
[2024-10-07] MEDS ORDERED: POTASSIUM CHLORIDE 20 MEQ/TAB PO SCH (08:30)
[2024-10-07] MEDS ORDERED: MAGNESIUM SULFATE HEPTAHYDRATE 50 ML IV SCH (08:30)
[2024-10-07 10:33] VITALS: BP 143/58
--- NOTE | 2024-10-07 11:45 | NUR ---
PATIENT LAYING IN BED. SITTER AT BEDSIDE. PATIENT DENIES ANY NEEDS AT THIS TIME.
--- NOTE | 2024-10-07 16:23 | NUR ---
PATIENT LAYING IN BED. SITTER AT BEDSIDE. PATIENT DENIES ANY NEEDS AT THIS TIME.
[2024-10-07 18:50] VITALS: BP 133/77
--- NOTE | 2024-10-07 19:38 | NUR ---
Patient has on left inside arm a purple bruise.
--- NOTE | 2024-10-07 19:56 | NUR ---
PT RESTING ON BED IN SEMI BLAKE'S POSITION. ALAERT AND ORIENTED X3. RESPS EVEN AND UNLABORED. NO DISTRESS NOTED. 02 VIA NC AT 1L. PT REMAINS WITH PRODUCTIVE COUGH. RHONCHI LUNGS ON AUCULTATION. 22 G PRAFUL WRIST INFUSING NS AT 100 ML/HR. CALL LIGHT OIN REACH AND SAFETY PRECAUTIONS ON PLACE.
[2024-10-07 23:36] VITALS: BP 124/69
--- NOTE | 2024-10-08 01:16 | NUR ---
PATIENT RESTING ON LEFT SIDE AT THIS MOMENT. BREATHING IS EVEN AND UNLABORED. IVF INFUSING VIA RIGHT WRIST. TELE MONITOR ON PLACE ORDERED. SITTER ON THE SIDE. CALL LIGHT IN REACH
[2024-10-08 03:34] VITALS: BP 157/76
--- NOTE | 2024-10-08 04:45 | NUR ---
PT SITTING UP ON THE EDGE OF THE BED. RESPS ARE EVEN AND UNLABORED. IVF IFUSING ORDERED. TELE MONITOR ON PLACE WELL WITH LEADS INTACT. CALL LIGHT IN REACH AND SAFETY PRECAUTIONS ON PLACE
[2024-10-08 05:21] LABS: BASO% 0.3 % (0-3); EOS% 0.5 % (0-8); HEMATOCRIT 32.8 % (39.0-50.0); HEMOGLOBIN 10.4 g/dl (14.0-18.0); IMMATURE GRANULOCYTES 1.1 % (0.0-5.0); LYMPH% 19.9 % (15-41); MEAN CELL VOLUME 88.9 fL CALC (80.0-100.0); MEAN CORPUSCULAR HGB 28.2 pG CALC (26.0-32.0); MEAN CORPUSCULAR HGB CONC 31.7 g/dL CAL (32.0-36.0); NEUT# 8.39 thou/uL (1.82-7.42); NEUT% 71.2 % (42-76); RED BLOOD COUNT 3.69 mill/uL (4.70-6.10); RED CELL DISTRI WIDTH 14.7 % (11.5-15.5)
[2024-10-08 05:22] LABS: ALBUMIN 2.9 g/dL (3.2-5.0); CREATININE 0.7 mg/dL (0.7-1.3); POTASSIUM 3.1 mmol/l (3.5-5.1); TOTAL PROTEIN 6.4 g/dL (6.3-8.2)
[2024-10-08 05:26] LABS: BILIRUBIN, TOTAL 0.2 mg/dL (0.2-1.3)
--- NOTE | 2024-10-08 07:25 | NUR ---
PT LAYING IN BED RESTING WITH EYES CLOSED, AROUSES EASILY TO VERBAL STIMULI, PT IS A&O X3, NORMAL S1 S2 HEART SOUNDS, TELE MONITOR IN PLACE, RESP. EVEN AND UNLABORED, COARSE LUNG SOUNDS IN THE BASES, PT ON 1L O2 VIA NC, PT TAKE O2 ON AND OFF, ABD DISTENDED AND SOFT WITH ACTIVE BOWEL SOUNDS, STRONG RADIAL PULSES, WEAK PEDAL PULSES, 22G RW IV, IV FLUIDS INFUSING AT PRESCRIBED RATE, SAFETY MEASURES REINFORCED, CALL NORTON WITHIN REACH
[2024-10-08] MEDS ORDERED: POTASSIUM CHLORIDE 20 MEQ/TAB PO SCH (09:00)
--- NOTE | 2024-10-08 12:00 | NUR ---
PT SITTING UP IN THE BED EATING LUNCH, SITTER REMAINS AT BEDSIDE, PT DENIES HALIMA NEEDS AT THIS TIME, CALL NORTON WITHIN REACH
--- NOTE | 2024-10-08 16:00 | NUR ---
PT LAYING IN BED WATCHING TV, NO S/S OF DISTRESS AT THIS TIME, SITTER AT BEDSIDE, CALL NORTON WITHIN REACH
[2024-10-09] VITALS (7 sets, daily range): BP systolic 142–177; BP diastolic 58–79
--- NOTE | 2024-10-09 | NUR ---
PATIENT CONT TO BE RESTLESS-SITTER AT BEDSIDE. PATIENT MEDICATED WITH TYLENOL FOR GENERALIZED DISCOMFORT AND ROBITUSSIN FOR COUGH. TELE MONITOR IN PLACE READING SR-74. IVF PATENT AND INFUSING VIA RIGHT WRIST. BED ALARM IN PLACE FOR PATIENT SAFETY. CALL LIGHT IN REACH. WILL CONT TO MONITOR. M
--- NOTE | 2024-10-09 00:14 | NUR ---
PATIENT IS SITTING ON THE SIDE OF THE BED AT THIS TIME WITH SITTER AT BEDSIDE FOR PATIENT SAFETY. PATIENT CONT TO BE IMPULSIVE AND JUST GET UP AND START WALKING TO BR FORGETTING ABOUT HIS IVF AND POLE. PATIENT DOES HAVE URINARY FREQUENCY-UP AND DOWN ALL THE TIME TO THE BR. PATIENT IS ALERT AND ORIENTED BUT FORGETFUL. TELE MONITOR IN PLACE AND READING SR IN THE 80'S. IVF NS PATENT AND INFUSING VIA RIGHT WRIST AT 100CC/HR. STILL RECEIVING MAXIPIME ORDERED. LUNG ARE CLEAR AT THIS TIME. PATIENT ABDSOFT WITH ACTIVE BS. DID HAVE BM TODAY. CALL LIGHT IN REACH. WILL CONT TO MONITOR.
--- NOTE | 2024-10-09 07:20 | NUR ---
REPORT RECEIVED FROM MARVA CORREIA
--- NOTE | 2024-10-09 10:12 | NUR ---
PT RESTING AT BEDSIDE WITH SITER PATRICIA GRAHAM AT BEDSIDE. PT A&O X3 BUT NOTED TO BE INPULSIVE WHEN ATTEMPTING TO GET OUT OF BED. PT DENIES ANY CURRENT PAIN OR DISCOMFORTS, PAIN SCALE AND REPORTING EDUCATED;ASSESSMENT COMPLETED;RESPIRATIONS EVEN AND UNLABORED ON RA,CLEAR LUNG SOUNDS;ABDOMEN SOFT ON PALPATION AND ACTIVE IN ALL 4 QUADRANTS;WEAK PEDAL PULSES;SKIN INTACT;TELE MONITORING [address] READING SR;#22G TO RF INFUSING NS @ 100ML/HR,SITE APPEARS HEALTHY;PT DENIES ANY ADDITIONAL NEEDS AND IS ENCOURAGED TO CALL FOR ASSISTANCE IF NEEDED;FALL PRECAUTIONS REMAIN IN PLACE WITH BED IN THE LOWEST POSITION AND SITER AT BEDSIDE;CALL LIGHT IN REACH;FREQUENT ROUNDS MADE.
--- NOTE | 2024-10-09 10:40 | NUR ---
AT BEDSIDE DISCUSSING POC
--- NOTE | 2024-10-09 11:25 | NUR ---
PT RESTING AT BEDSIDE WITH SITER AND FAMILY;RESPIRATIONS EVEN AND UNLABORED ON RA;PT DENIES ANY CURRENT PAIN OR DISCOMFORTS;IV SITE TO RH REMAINS PATENT;TELE MONITORING IN PLACE;PT DENIES ANY ADDITIONAL NEEDS AND IS ENCOURAGED TO CALL FOR ASSISTANCE IF NEEDED;BED REMAINS IN THE LOWEST POSITION WITH CALL LIGHT IN REACH AND SITER AT BEDSIDE;FREQUENT ROUNDS MADE
--- NOTE | 2024-10-09 15:45 | NUR ---
PT RESTING IN SEMI FOWLERS POSITION WITH SITER AT BEDSIDE;RESPIRATIONS REMAIN EVEN AND UNLABORED ON RA;PT DENIES ANY CURRENT PAIN OR NEEDS;#22G TO RH INFUSING NS @ 100ML/HR;PT ENCOURAGED TO CALL FOR ASSISTANCE IF NEEDED;FALL PRECAUTIONS IN PLACE WITH BED IN THE LOWEST POSITION AND CALL LIGHT IN REACH;FREQUENT ROUNDS MADE.
--- NOTE | 2024-10-09 18:17 | NUR ---
IV SITE REMOVED DUE TO BEING DISLODGED WITH CATHETER INTACT. NEW # 22G STARTED TO LH ON 2ND ATTEMPT BY THIS CABLE PLACER.
--- NOTE | 2024-10-09 19:50 | NUR ---
PATIENT OBSERVED RESTING IN BED. ASSESSMENT COMPLETE. NO DISTRESS NOTED. PRODUCTIVE COUGH PRESENT. NO COMPLAINTS OF PAIN. AMBULATES TO RESTROOM WITH SUPERVISION. DENIES NEEDING ANYTHING AT THIS TIME. SITTER IN ROOM FOR SAFETY.
--- NOTE | 2024-10-10 00:28 | NUR ---
PATIENT REMAINS RESTING IN BED. NO DISTRESS. NO SIGNS OF PAIN. SITTER REMAINS IN ROOM FOR SAFETY. BED REMAINS IN LOW POSITION. CALL NORTON IN REACH.
[2024-10-10 04:11] VITALS: BP 178/80
--- NOTE | 2024-10-10 04:12 | NUR ---
PATIENT REMAINS RESTING IN BED. NO DISTRESS NOTED. NO COMPLAINTS OF PAIN. BED REMAINS IN LOW POSITION. CALL NORTON IN REACH. SITTER REMAINS IN ROOM FOR SAFETY.
[2024-10-10 04:15] VITALS: BP 159/78
--- NOTE | 2024-10-10 09:22 | NUR ---
PT RESTING IN BED WITH SITTER AT BEDSIDE. ASSESSMENT COMPLETED. NO COMPLAINTS VOICED AT THIS TIME. CALL LIGHT WITHIN REACH. BED IN LOWEST POSITION.
--- NOTE | 2024-10-10 12:30 | NUR ---
NO CHANGE IN PT'S ASSESSMENT. SITTER REMAINS AT BEDSIDE. NO RESP. DISTRESS NOTED. PT AMBULATED TO BATHROOM WITH EVAN OF ONE STANDBY. IV FLUIDS CONTINUE TO INFUSE WIITOUT DIFFICULTY. CALL LIGHT WITHIN REACH. BED IN LOWEST POSITION.
--- NOTE | 2024-10-10 16:10 | NUR ---
NOTIFIED DAUGHTER OF PATIENTS DISCHARGE ORDERS. SHE STATED SHE WOULD BE ON HER WAY WITH CLOTHES TO TAKE HIM HOME. INSTRUCTED HER THAT THERE WOULD BE DISCHARGE INSTRUCTIONS FOR HER TO SIGN BEFORE HE LEAVES THE HOSPITAL. SHE STATED OK.
--- NOTE | 2024-10-10 16:20 | NUR ---
DAUGHTER CHRIS HERE TO TAKE PATIENT HOME. PT LEFT VIA WHEELCHAIR WITH STAFF.
== END 2024-10-10 16:20 | disposition home or self-care (01) | DRG 178 ==
LOC: ED 05:55 → ED-I 10:00 → ED 10:26 → MS2 10:27
PROVIDERS: Family Medicine; Internal Medicine; Nurse Practitioner Family; ADMIT Internal Medicine; ATTEND Internal Medicine
DX: J15.1 Pneumonia due to Pseudomonas (principal); J44.0 Chronic obstructive pulmonary disease with (acute) lower respiratory infection; J43.9 Emphysema, unspecified; I10 Essential (primary) hypertension; F03.90 Unspecified dementia, unspecified severity, without behavioral disturbance, psychotic disturbance, mood disturbance, and anxiety; I25.10 Atherosclerotic heart disease of native coronary artery without angina pectoris; Z87.891 Personal history of nicotine dependence; Z20.822 Contact with and (suspected) exposure to COVID-19
CPT/HCPCS: J0692; J1650; J2543; J3370; J3475; Q9967

== ENCOUNTER 2024-11-10 18:42 | Emergency (ER) | payer MEDICARE ==
[~2024-11-10] VITALS: Ht 292.1 cm; Wt 62.0 kg
[~2024-11-10 18:42] MED LIST changes: +ALBUTEROL108 MCG/AC; +CEFDINIR300 MG PO; +DONEPEZIL10 MG PO; +MEMANTINE HYDROC5 MG; +MONTELUKAST SOD10 MG PO
[2024-11-10 19:00] VITALS: BP 189/157
[2024-11-10 19:15] VITALS: BP 153/83
[2024-11-10 19:32] VITALS: BP 125/79
[2024-11-10 19:46] VITALS: BP 169/102
[2024-11-10 20:02] VITALS: BP 169/102
== END 2024-11-10 20:02 | disposition home or self-care (01) ==
LOC: ED 18:42
PROC: 0HQ1XZZ Repair Face Skin, External Approach (ICD-10-PCS; principal; 2024-11-10)
DX: S01.111A Laceration without foreign body of right eyelid and periocular area, initial encounter (principal); S61.511A Laceration without foreign body of right wrist, initial encounter; I10 Essential (primary) hypertension; J44.9 Chronic obstructive pulmonary disease, unspecified; F03.90 Unspecified dementia, unspecified severity, without behavioral disturbance, psychotic disturbance, mood disturbance, and anxiety; W01.0XXA Fall on same level from slipping, tripping and stumbling without subsequent striking against object, initial encounter; Y92.239 Unspecified place in hospital as the place of occurrence of the external cause